=== PATIENT | female | born 1970 | race Caucasian/White ===

== ENCOUNTER 2021-02-01 02:53 | Emergency (ER) | payer BC, OTHER ==
[2021-02-01] MEDS ORDERED: HYDROCODON-ACE1 EAC4 PO (04:00)
[2021-02-01] MEDS ORDERED: CYCLOBENZAPRINE10 MG PO (04:00)
== END 2021-02-01 04:15 | disposition home or self-care (01) ==
LOC: ER1 02:53
DX: S43.005A Unspecified dislocation of left shoulder joint, initial encounter (principal); I10 Essential (primary) hypertension; Z88.0 Allergy status to penicillin; W22.8XXA Striking against or struck by other objects, initial encounter; Y92.009 Unspecified place in unspecified non-institutional (private) residence as the place of occurrence of the external cause
CPT/HCPCS: 23650; 73030; 96374; 96375; 99152; 99283; J2405; J2704; J3010

== ENCOUNTER → 2021-03-11 | Outpatient (CLI) | payer BC, OTHER ==
[~2021-03-11] MED LIST: CYCLOBENZAPRINE10 MG PO; HYDROCODON-ACE1 EAC4 PO
== END ==
LOC: RAD 09:00
DX: M24.412 Recurrent dislocation, left shoulder (principal)
CPT/HCPCS: 73040; 73222; A9577; Q9962